=== PATIENT | male | born 1985 | race Caucasian/White ===

== ENCOUNTER 2017-01-22 20:23 | Emergency (ER) | payer OTHER ==
[2017-01-22] MEDS ORDERED: IBUPROFEN800 M1 PO (21:16)
[2017-01-22] MEDS ORDERED: PERCOCET 5-3251 EACH PO (21:16)
--- NOTE | 2017-01-22 21:17 | ED UPPER/LOWER EXTREMITY COMPL ---
History of Present Illness General Chief Complaint: Lower Extremity Injury Stated Complaint: LEFT LEG PAIN PER PT Source: patient Exam Limitations: no limitations Vital Signs & Intake/Output Vital Signs & Intake/Output Vital Signs Date Time Temp Pulse Resp B/P B/P Pulse O2 O2 Flow FiO2 Mean Ox Delivery Rate 01/22 2122 97.0 84 18 163/68 98 Room Air 01/22 2045 96.9 84 20 131/80 98 Allergies Coded Allergies: shellfish derived (HIVES 01/22/17) Reconcile Medications Albuterol Sulfate (Proair Hfa) 90 MCG HFA.AER.AD 2 PUF INH PRN ASTHMA ( Reported) Alprazolam 0.25 MG TABLET 1 TAB PO PRN ANXIETY (Reported) Ibuprofen 800 MG TABLET 1 TAB PO TID pain Lactobacillus Acidophilus (Probiotic) (Unknown Strength) CAPSULE (Unknown Dose ) PO DAILY PROBIOTIC (Reported) Multivitamin (Multi-Day Vitamins) 1 EACH TABLET 1 TAB PO DAILY SUPPLEMENT ( Reported) Oxycodone HCl/Acetaminophen (Percocet 5-325 MG Tablet) 5 MG-325 MG TABLET 1-2 TAB PO Q6P PRN pain Paroxetine HCl (Paroxetine Cr) 25 MG TAB.ER.24H 1 TAB PO DAILY MENTAL HEALTH (Reported) Sumatriptan Succinate 100 MG TABLET 1 TAB PO AD PRN MIGRAINES (Reported) may repeat in 2 hours; do not exceed 200 mg in 24 hours Triage Note: PER PT ? TORE QUAD OF L THIGH, PLAYING SOFTBALL DID NOT WARM UP OR STRETCHER, 2 HRS AGO INTENSE PAIN TO L THIGH. Triage Nurses Notes Reviewed? yes Onset: Abrupt Duration: minute(s): Timing: single episode today Severity: severe Pain/Injury Location: Left: Leg. No Modifying Factors: none HPI: 31-year-old male comes into emergency room with complaints of severe left anterior leg pain. Patient reports that he was playing softball and he didn't stretch before the game. Patient reports that when he went to pivot in turn he felt a pop in his left upper thigh and some burning pain. Patient reports he has not been able to bear weight on it since then. Sharp pain. Some associated swelling. Denies any injury or trauma to the knee itself or injury anywhere else on his body. Pain radiates up into his left buttocks. (ERNESTINA BARBOSA,YULIANA) Past History Travel History Traveled to [place] past 21 day No Medical History Any Pertinent Medical History? see below for history Neurological: NONE EENT: NONE Cardiovascular: NONE Respiratory: NONE Gastrointestinal: NONE Hepatic: NONE Renal: NONE Musculoskeletal: NONE Psychiatric: NONE Endocrine: NONE Blood Disorders: NONE Surgical History Surgical History: none Psychosocial History What is your primary language Lao Tobacco Use: Never used Family History Hx Contributory? No (YULIANA FARRIS) Review of Systems Review of Systems Constitutional: Reports: no symptoms. EENTM: Reports: no symptoms. Respiratory: Reports: no symptoms. Cardiovascular: Reports: no symptoms. Gastrointestinal/Abdominal: Reports: no symptoms. Genitourinary: Reports: no symptoms. Musculoskeletal: Reports: see HPI. Skin: Reports: no symptoms. Neurological/Psychological: Reports: no symptoms. Hematologic/Endocrine: Reports: no symptoms. Immunological: Reports: no symptoms. All Other Systems: Reviewed and Negative (YULIANA FARRIS) Physical Exam Physical Exam General Appearance: well developed/nourished, mild distress Head: atraumatic Eyes: Bilateral: normal appearance. Ears, Nose, Throat: normal ENT inspection, hearing grossly normal Neck: normal inspection Cardiovascular/Respiratory: no respiratory distress Back: normal inspection Leg Left: tenderness to left anterior thigh over quadriceps muscle, small amount of swelling, no ecchymosis or bruising appreciated, severe limited range information of the entire leg, Knee Left: limited range of motion, no soft tissue tenderness or swelling over the knee, no joint effusion Foot Left: normal inspection, normal range of motion Neurologic/Tendon: normal sensation, normal motor functions, normal tendon functions, responds to pain, no evidence tendon injury, no pulse deficit Skin: intact, normal color, warm/dry Lymphatic: no anterior cervical jayashree (YULIANA AFRRIS) Progress Differential Diagnosis: arterial insufficiency, cellulitis, compartment syndrome , contusion, dislocation, DVT, fracture, gout, septic arthritis, sprain, tendon injury, muscle tear Plan of Care: Orders Procedure Date/time Status Durable Medical Equipment 01/23 2116 Active Comments: 01/22/2017 10:52:04 PM Symptoms most consistent with a quadriceps muscle tear. Patient given pain medication. Patient referred to orthopedic for physical therapy. Patient may require MRI. Due to the fact that there was no falls do not feel an x-ray is indicated at this time and will not evaluate for soft tissue injury other than showing some mild swelling which is ready obvious on exam. Patient understands and agrees with plan of care. Patient was given crutches and told to stay nonweightbearing. Patient will comply and follow-up. Return if any other concerns. (YULIANA FARRIS) Departure Departure Disposition: HOME OR SELF CARE Condition: Stable Clinical Impression Primary Impression: Quadriceps muscle rupture Referrals: BRADEN LEIVA,KIARA MCGRATH MD,ELMER Nolasco (PCP/Family) Additional Instructions: Take Percocet and ibuprofen as prescribed. Follow-up with orthopedic doctor. You are going to require physical therapy. Return if any other concerns worsening symptoms. I Departure Forms: Customer Survey General Discharge Information Prescriptions: Current Visit Scripts Ibuprofen 1 TAB PO TID #30 TAB Oxycodone HCl/Acetaminophen (Percocet 5-325 MG Tablet) 1-2 TAB PO Q6P PRN pain #20 TAB (YULIANA FARRIS) PA/PORTABLE GRINDING MACHINE OPERATOR Co-Sign Statement Statement: ED Attending supervision documentation- [] I saw and evaluated the patient. I have also reviewed all the pertinent lab results and diagnostic results. I agree with the findings and the plan of care as documented in the PA's/PORTABLE GRINDING MACHINE OPERATOR's documentation. [X] I have reviewed the ED Record and agree with the PA's/PORTABLE GRINDING MACHINE OPERATOR's documentation. [] Additions or exceptions (if any) to the PAs/PORTABLE GRINDING MACHINE OPERATOR's note and plan are summarized below: [] (JAVIER LEIVA,SAFIA Chandra)
[2017-01-22 21:22] VITALS: BP 163/68
[2017-01-22] MEDS ORDERED: PAROXETINE CR25 MG PO (21:25)
[2017-01-22] MEDS ORDERED: ALPRAZOLAM0.25 M1 PO (21:26)
[2017-01-22] MEDS ORDERED: MULTI-DAY VITA1 EACH PO (21:27)
[2017-01-22] MEDS ORDERED: SUMATRIPTAN SU100 M1 PO (21:27)
[2017-01-22] MEDS ORDERED: PROAIR HFA8.5 GM INH (21:27)
[2017-01-22] MEDS ORDERED: PROBIOTIC1 EACH PO (21:27)
== END 2017-01-22 22:04 ==
LOC: ERH 20:23 → EDBD 20:52 → ERH 22:04
DX: S76.112A Strain of left quadriceps muscle, fascia and tendon, initial encounter (principal); X50.9XXA Other and unspecified overexertion or strenuous movements or postures, initial encounter; Y93.64 Activity, baseball; Y92.9 Unspecified place or not applicable
CPT/HCPCS: 96372; J1885